=== PATIENT | male | born 1985 | race Caucasian/White ===

== ENCOUNTER 2016-07-26 08:24 | Emergency (ER) | payer BC | END 2016-07-26 15:05 | disposition home or self-care (01) | LOC: ER1 08:24 | DX: R51 Headache (principal); R11.2 Nausea with vomiting, unspecified | CPT/HCPCS: 70450; 96361; 96374; 96375; 99284; J1200; J1885; J2765; J7030 ==

== ENCOUNTER → 2020-07-03 | Outpatient (CLI) | payer BC ==
[~2020-07-03] MED LIST: ONDANSETRON ODT4 MG PO; PROTONIX40 MG PO
== END ==
LOC: KOH-I 11:04
DX: M54.5 Low back pain (principal); M43.8X4 Other specified deforming dorsopathies, thoracic region
CPT/HCPCS: 72110

== ENCOUNTER → 2020-10-01 | Outpatient (CLI) | payer BC | LOC: MAMO 07-23 14:00 | DX: N63.23 Unspecified lump in the left breast, lower outer quadrant (principal); R92.8 Other abnormal and inconclusive findings on diagnostic imaging of breast | CPT/HCPCS: 77066 ==

== ENCOUNTER → 2020-12-11 | Outpatient (CLI) | payer OTHER | LOC: US 13:17 | DX: N63.23 Unspecified lump in the left breast, lower outer quadrant (principal) | CPT/HCPCS: 76641-LT; 76641-RT ==

== ENCOUNTER → 2021-04-22 | Outpatient (CLI) | payer OTHER ==
[2021-04-23 08:13] LABS: ALPHA-1-ANTITRYPSIN, SERUM 135 mg/dL (95-164); HBSAG SCREEN Negative (Negative); HEP A AB, IGM Negative (Negative); HEP B CORE AB, IGM Negative (Negative); HEP C VIRUS AB 0.1 (0.0-0.9); IMMUNOGLOBULIN G, QN, SERUM 1185 mg/dL (603-1613)
[2021-04-23 15:14] LABS: ACTIN (SMOOTH MUSCLE) ANTIBODY 4 Units (0-19); LIVER-KIDNEY MICROSOMAL AB <1.0 Units (0.0-20.0); MITOCHONDRIAL (M2) ANTIBODY <20.0 Units (0.0-20.0)
== END ==
LOC: US 09:04
PROVIDERS: Internal Medicine Gastroenterology
DX: R79.89 Other specified abnormal findings of blood chemistry (principal)
CPT/HCPCS: 36415; 76705; 80074; 80076; 82103; 82728; 82784; 83516; 83540; 83550; 86038; 86376

== ENCOUNTER → 2021-07-15 | Outpatient (CLI) | payer BC, OTHER | LOC: KOH-I 07-12 14:30 | DX: M54.50 Low back pain, unspecified (principal); M51.36 Other intervertebral disc degeneration, lumbar region | CPT/HCPCS: 72148 ==